=== PATIENT | female | born 1985 | race Caucasian/White ===

== ENCOUNTER 2020-06-02 18:23 | Emergency (ER) | payer OTHER ==
[~2020-06-02] VITALS: Ht 180.3 cm; Wt 90.9 kg
[2020-06-02 18:32] VITALS: BP 147/83
== END 2020-06-02 20:50 | disposition left against medical advice (07) ==
LOC: EMS 18:23
DX: Z97.5 Presence of (intrauterine) contraceptive device (principal); Z53.21 Procedure and treatment not carried out due to patient leaving prior to being seen by health care provider